=== PATIENT | female | born 1970 | race Caucasian/White ===

== ENCOUNTER → 2016-10-30 | Outpatient (CLI) | payer OTHER | LOC: RAD 21:08 | DX: M25.521 Pain in right elbow (principal); M47.816 Spondylosis without myelopathy or radiculopathy, lumbar region | CPT/HCPCS: 72110; 73080 ==

== ENCOUNTER → 2016-11-16 | Outpatient (CLI) | payer OTHER | LOC: KOH-I 12:08 | DX: N13.70 Vesicoureteral-reflux, unspecified (principal); M54.89 Other dorsalgia; M51.36 Other intervertebral disc degeneration, lumbar region; M47.816 Spondylosis without myelopathy or radiculopathy, lumbar region | CPT/HCPCS: 72148; 76775 ==

== ENCOUNTER 2020-09-04 22:11 | Emergency (ER) | payer OTHER ==
[~2020-09-04 22:11] MED LIST: BACTROBAN CREAM15 GM TOP; BENADRYL 50MG C50 MG PO; BENTYL 20MG TAB20 MG PO; PEPCID20 MG PO; PREDNISONE50 MG PO; VIBRAMYCIN100 MG PO; ZOFRAN ODT 4 MG4 MG SL
== END 2020-09-05 01:53 | disposition left against medical advice (07) ==
LOC: ER1 22:11
DX: R10.9 Unspecified abdominal pain (principal); Z53.21 Procedure and treatment not carried out due to patient leaving prior to being seen by health care provider

== ENCOUNTER → 2020-11-18 | Outpatient (CLI) | payer OTHER | LOC: KOH-I 14:28 | DX: M79.605 Pain in left leg (principal) | CPT/HCPCS: 73564 ==

== ENCOUNTER → 2020-11-27 | Outpatient (CLI) | payer OTHER | LOC: EXRD 14:45 | DX: M79.605 Pain in left leg (principal); R93.6 Abnormal findings on diagnostic imaging of limbs | CPT/HCPCS: 93926; 93971 ==

== ENCOUNTER → 2020-12-16 | Outpatient (CLI) | payer OTHER | LOC: HEART 5 14:04 | DX: I73.9 Peripheral vascular disease, unspecified (principal) ==

== ENCOUNTER → 2022-01-12 | Outpatient (CLI) | payer OTHER | LOC: KOH-I 14:48 | DX: I83.812 Varicose veins of left lower extremity with pain (principal) | CPT/HCPCS: 93971 ==